=== PATIENT | female | born 1945 | race Caucasian/White ===

== ENCOUNTER 2016-12-17 10:51 | Outpatient (CLI) | payer MEDICARE ==
--- NOTE | 2016-12-17 14:12 | Mammography Report ---
DIGITAL DIAGNOSTIC BILATERAL MAMMOGRAM: 12/17/2016 CLINICAL INDICATION: Left breast cancer, status post lumpectomy, bilateral reduction, chemoradiation. TECHNIQUE: Bilateral CC and MLO views, bilateral laterally exaggerated craniocaudal views, left true lateral and spot magnification views. COMPARISON: 05/08/2016, 07/23/2015, 08/14/2014, 06/22/2014, 05/08/2014, 04/25/2014, 03/21/2013, 11/26, 10/08/2010, 08/24/2009. FINDINGS: The breasts demonstrate scattered fibroglandular densities bilaterally. Postoperative and posttreatment changes in the left breast and postreduction changes in the right breast are stable. A few punctate, typically benign calcifications are present. No suspicious masses, clustered microcalci fications, or regions of architectural distortion are identified. IMPRESSION: BENIGN FINDINGS. RECOMMENDATION: ROUTINE ANNUAL MAMMOGRAPHY UNLESS OTHERWISE CLINICALLY INDICATED. BIRADS CATEGORY 2-BENIGN FINDINGS. STANDARD QUALIFYING STATEMENTS 1. This examination was reviewed with the aid of Computer-Aided Detection (CAD). 2. A negative or benign imaging report should not delay biopsy if clinically suspicious findings are present. Consider surgical consultation if warranted. More than 5% of cancers are not identified by i maging. 3. Dense breasts may obscure an underlying neoplasm. JOB #: [id number] EXT JOB #:[id number]
== END 2016-12-17 10:52 | disposition home or self-care (01) ==
LOC: DI 10:51
PROVIDERS: ATTEND Internal Medicine Hematology & Oncology
DX: C50.912 Malignant neoplasm of unspecified site of left female breast (principal)
CPT/HCPCS: 77066

== ENCOUNTER 2016-12-17 11:03 | Outpatient (CLI) | payer MEDICARE ==
--- NOTE | 2016-12-17 14:03 | XRAY Report ---
THREE VIEW BILATERAL HANDS: 12/17/2016 CLINICAL INDICATION: Pain. FINDINGS: AP, lateral, and oblique views of the bilateral hands demonstrate mild osteoarthritic renteria ges of the interphalangeal joints and 1st carpometacarpal joints. There is no evidence of acute fract ure or dislocation. No radiopaque foreign body is seen in the soft tissues. IMPRESSION: MILD OSTEOARTHRITIS. JOB #: [id number] EXT JOB #:[id number]
== END 2016-12-17 11:04 | disposition home or self-care (01) ==
LOC: DI 11:03
PROVIDERS: ATTEND Family Medicine
DX: C50.912 Malignant neoplasm of unspecified site of left female breast (principal); M19.042 Primary osteoarthritis, left hand; M19.041 Primary osteoarthritis, right hand
CPT/HCPCS: 73130; G0204; 77066

== ENCOUNTER 2018-01-20 13:54 | Outpatient (CLI) | payer MEDICARE ==
--- NOTE | 2018-01-20 16:42 | Mammography Report ---
Procedure Date: 01/20/2018 Accession Number: [id number] / [id number] Procedure: YUKO - Diagnostic Dig Bilat CPT Code: FULL RESULT: EXAM: Diagnostic Dig Bilat DATE: 01/20/2018 2:27 PM CLINICAL HISTORY: 72-year-old with personal history of left breast cancer status post lumpectomy, bilateral reduction, chemoradiation TECHNIQUE: Bilateral CC and MLO views, left true lateral and spot compression views COMPARISON: 12/17/2016, 05/08/2016, 07/23/2015, 08/14/2014, 06/12/2014, 05/08/2014, 04/25/2014, 03/21/2013, 11/27/2011, 10/08/2010, 08/24/2009 FINDINGS: The breasts again demonstrate fatty replacement bilaterally. In the left upper outer central breast, there is a new nodule, measuring 6 mm. Punctate, typically benign calcifications are present. Unfortunately, due to emergent procedures, ultrasound could not be performed the same day. The patient will be contacted to schedule the ultrasound. IMPRESSION: Incomplete examination RECOMMENDATION: Left breast ultrasound, to be scheduled BIRADS CATEGORY 0: Incomplete STANDARD QUALIFYING STATEMENTS: 1. This examination was reviewed with the aid of Computer-Aided Detection (CAD). 2. A negative or benign imaging report should not delay biopsy if clinically suspicious findings are present. Consider surgical consultation if warrented. More than 5% of cancers are not identified by imaging. 3. Dense breasts may obscure an underlying neoplasm.
== END 2018-01-20 13:55 | disposition home or self-care (01) ==
LOC: DI 13:54
PROVIDERS: ATTEND Family Medicine
DX: N63.21 Unspecified lump in the left breast, upper outer quadrant (principal); Z85.3 Personal history of malignant neoplasm of breast
CPT/HCPCS: 76642; 77066

== ENCOUNTER 2018-01-21 10:41 | Outpatient (CLI) | payer MEDICARE ==
--- NOTE | 2018-01-21 12:56 | Ultrasound Report ---
Procedure Date: 01/21/2018 Accession Number: [id number] / [id number] Procedure: US - Breast Unilateral Limited CPT Code: FULL RESULT: EXAM: Breast Unilateral Limited DATE: 01/21/2018 11:43 AM CLINICAL HISTORY: LEFT BREAST NODULE TECHNIQUE: Real time scanning, with insurance representative static images obtained. COMPARISON: Mammogram 01/20/2018 FINDINGS: In the left upper outer breast, 1:00 position, approximately 3 cm from the nipple, there is a hypoechoic lobulated nodule, with some posterior acoustic shadowing. It measures 5 x 5 x 4 mm. The appearance is suspicious. Biopsy is recommended. Nodule appears amenable to ultrasound-guided core needle biopsy. IMPRESSION: Suspicious abnormality, with a solid lobulated nodule correlating with mammographic abnormality. Recommendation: Biopsy. The nodule appears amenable to ultrasound-guided core needle biopsy. BI-RADS Category 4 suspicious abnormality Results and recommendations discussed with the patient at the time of the examination, and called to Dr. Carlson on 01/21/2018. Biopsy is scheduled for 01/26/2018 at 11:45 AM.
== END 2018-01-21 10:42 | disposition home or self-care (01) ==
LOC: DI 10:41
PROVIDERS: ATTEND Family Medicine
DX: N63.21 Unspecified lump in the left breast, upper outer quadrant (principal)
CPT/HCPCS: 76642

== ENCOUNTER 2018-01-26 11:41 | Outpatient (CLI) | payer MEDICARE ==
--- NOTE | 2018-01-26 13:42 | Mammography Report ---
Procedure Date: 01/26/2018 Accession Number: [id number] / [id number] Procedure: YUKO - Diagnostic Dig LT CPT Code: FULL RESULT: EXAM: Diagnostic Dig LT DATE: 01/26/2018 1:17 PM CLINICAL HISTORY: Status post ultrasound-guided left breast core biopsy. Patient with a personal history of left breast cancer status post chemoradiation and reduction. TECHNIQUE: Unilateral left CC and true lateral views. COMPARISON: 01/20/2018, 12/17/2016, 05/08/2016 and 07/23/2015 FINDINGS: There are scattered fibroglandular densities. In the area of previously seen left breast upper outer quadrant nodule a new biopsy clip is seen. Subcutaneous air is consistent with the recent biopsy. IMPRESSION: Appropriate clip placement status post ultrasound-guided left breast core biopsy. RECOMMENDATION: Final recommendation pending pathology review. BIRADS CATEGORY 0: Awaiting pathology review. STANDARD QUALIFYING STATEMENTS: 1. This examination was reviewed with the aid of Computer-Aided Detection (CAD). 2. A negative or benign imaging report should not delay biopsy if clinically suspicious findings are present. Consider surgical consultation if warrented. More than 5% of cancers are not identified by imaging. 3. Dense breasts may obscure an underlying neoplasm.
--- NOTE | 2018-01-26 14:02 | Ultrasound Report ---
Procedure Date: 01/26/2018 Accession Number: [id number] / [id number] Procedure: US - Biopsy Breast Core CPT Code: FULL RESULT: EXAM: Biopsy Breast Core DATE: 01/26/2018 12:58 PM CLINICAL HISTORY: ABN MAMMOGRAM - LT BR NODULE patient with personal history of breast cancer. COMPARISON: Left breast mammogram 01/20/2018 and ultrasound 01/21/2018 TECHNIQUE: Initial real-time scanning by the social work therapist with saved static images reviewed confirms the persistence of a hypoechoic left breast 5 x 5 x 4 mm nodule approximately 3 cm from the nipple. Informed consent is obtained from the patient. Using ultrasound guidance the suspicious left breast nodule is marked. Using sterile technique 1% lidocaine is used for local anesthesia. Then 5 core samples using an achieve needle are obtained with ultrasound confirmation of needle position with reference to the lesion. A biopsy clip was then deployed. Postprocedure left breast mammogram shows appropriate clip placement with respect to the lesion. IMPRESSION: Successful ultrasound-guided left breast core biopsy. Final recommendation pending pathology review.
[2018-01-26 14:38] VITALS: BP 163/76
[2018-01-26] MEDS ORDERED: BUFFERED LIDOCAINE 10 ML SYRINGE IU ONE (15:53)
== END 2018-01-26 11:42 | disposition home or self-care (01) ==
LOC: DI 11:41
PROVIDERS: ATTEND Family Medicine
DX: C50.412 Malignant neoplasm of upper-outer quadrant of left female breast (principal); Z17.0 Estrogen receptor positive status [ER+]
CPT/HCPCS: 19083

== ENCOUNTER 2018-04-12 00:12 | Outpatient (CLI) | payer MEDICARE | END 2018-04-12 00:13 | disposition short-term general hospital (02) | LOC: EMS 00:12 | PROVIDERS: ATTEND Surgery | DX: R58 Hemorrhage, not elsewhere classified (principal); R42 Dizziness and giddiness ==

== ENCOUNTER 2020-02-07 11:05 | Outpatient (CLI) | payer MEDICARE ==
[2020-02-07 19:20] LABS: BASOPHILS # (AUTO) 0.1 10^3/uL (0.0-0.1); BASOPHILS % (AUTO) 0.9 %; EOSINOPHILS # (AUTO) 0.1 10^3/uL (0.0-0.7); HGB - HEMOGLOBIN 11.9 g/dL (12.0-16.0); LYMPHOCYTES # (AUTO) 2.3 10^3/uL (1.5-3.5); LYMPHOCYTES % (AUTO) 34.2 %; MEAN CORPUSCULAR HEMOGLOBIN 25.3 pg (27.0-31.0); MEAN CORPUSCULAR HGB CONC 30.2 g/dL (32.0-36.0); MEAN CORPUSCULAR VOLUME 83.7 fL (81.0-99.0); MEAN PLATELET VOLUME 10.7 fL (7.9-10.8); MONOCYTES # (AUTO) 0.6 10^3/uL (0.0-1.0); MONOCYTES % (AUTO) 9.5 %; NEUTROPHILS # (AUTO) 3.5 10^3/uL (1.5-6.6); NEUTROPHILS % (AUTO) 53.1 %; PLT - PLATELET COUNT 222 10^3/uL (130-450); RED BLOOD COUNT 4.71 10^6/uL (4.20-5.40); RED CELL DISTRIBUTION WIDTH 17.5 % (12.0-15.0); WHITE BLOOD COUNT 6.6 x10^3/uL (4.8-10.8)
[2020-02-07 19:51] LABS: ALKALINE PHOSPHATASE 45 IU/L (42-121); ALT ALANINE AMINOTRANSFERASE 25 IU/L (10-60); AST ASPARTATE AMINOTRANSFERASE 26 IU/L (10-42); BILIRUBIN,TOTAL 0.4 mg/dL (0.2-1.0); BUN - BLOOD UREA NITROGEN 13 mg/dL (6-20); CALCIUM 8.9 mg/dL (8.5-10.3); CARBON DIOXIDE - CO2 28 mmol/L (21-32); CHLORIDE 105 mmol/L (101-111); CREATININE 0.8 mg/dL (0.4-1.0); GLUCOSE 102 mg/dL (70-100); SODIUM 140 mmol/L (135-145); TOTAL PROTEIN 6.7 g/dL (6.7-8.2)
[2020-02-07 19:52] LABS: ALBUMIN 3.6 g/dL (3.2-5.5); ALBUMIN/GLOBULIN RATIO 1.2 (1.0-2.2); CHOL/HDL RATIO 2.4 (<4.4); CHOLESTEROL 137 mg/dL; HDL CHOLESTEROL 57 mg/dL; LDL CHOLESTEROL,CALCULATED 62 mg/dL; LDL/HDL RATIO 1.1 (<4.4); VLDL CHOLESTEROL 18 mg/dL
[2020-02-07 20:03] LABS: HB2 TOTAL 12.7 g/dL; HEMOGLOBIN A1C 0.5 g/dL; HEMOGLOBIN A1C % 5.8 % (4.6-6.2)
== END 2020-02-07 23:59 | disposition home or self-care (01) ==
LOC: LAB.WCP 11:05
PROVIDERS: ATTEND Physician Assistant
DX: R73.9 Hyperglycemia, unspecified (principal); Z79.899 Other long term (current) drug therapy; E53.8 Deficiency of other specified B group vitamins
CPT/HCPCS: 36415; 80053; 80061; 82607; 83036; 83721; 85025

== ENCOUNTER 2020-02-08 10:41 | Outpatient (CLI) | payer MEDICARE ==
--- NOTE | 2020-02-12 13:23 | Mammography Report ---
UNILATERAL RIGHT DIGITAL SCREENING MAMMOGRAM 3D/2D: 02/08/2020 CLINICAL: Routine screening. Comparison is made to exams dated: 01/24/2019 mammogram - [facility], 01/26/2018 mammogram, 2017 mammogram, and 12/17/2016 mammogram - [facility]. The tissue of right breast i s predominantly fatty. No significant masses, calcifications, or other findings are seen in the breast. There has been no significant interval change. IMPRESSION: NEGATIVE There is no mammographic evidence of malignancy. A 1 year screening mammogram is recommended. This exam was interpreted at Station ID: [id number]. NOTE: For mammograms, a report in lay terms will be sent to the patient. Approximately 15% of breast malignancies will not be visualized mammographically. In the management of a palpable breast mass, a negative mammogram must not discourage biopsy of a clinically suspicious lesion. Electronically Signed By: Steve Nava M.D. slc/penrad:02/08/2020 18:39:00 ACR BI-RADS Category 1: Negative 3341F PARENCHYMAL PATTERN: (F) - The breast(s) demonstrate(s) diffuse fatty replacement. BI-RADS CATEGORY: (1) - 1 RECOMMENDATION: (ANNUAL) - Recommend routine annual screening mammography. [id number] 1 year screening LATERALITY: (B)
== END 2020-02-08 10:42 | disposition home or self-care (01) ==
LOC: DI 10:41
PROVIDERS: ATTEND Internal Medicine Hematology & Oncology
DX: Z12.31 Encounter for screening mammogram for malignant neoplasm of breast (principal)
CPT/HCPCS: 77063

== ENCOUNTER 2020-06-05 08:00 | Outpatient (CLI) | payer MEDICARE | END 2020-06-05 23:59 | disposition home or self-care (01) | LOC: LAB.R 08:00 | PROVIDERS: ATTEND Nurse Practitioner Family | DX: R30.0 Dysuria (principal) | CPT/HCPCS: 87086; 87181 ==

== ENCOUNTER 2020-07-15 08:00 | Outpatient (CLI) | payer MEDICARE ==
[2020-07-15 19:33] LABS: BILIRUBIN,URINE NEGATIVE (NEGATIVE); GLUCOSE, URINE (UA) NEGATIVE (NEGATIVE); KETONES,URINE (UA) NEGATIVE (NEGATIVE); LEUKOCYTE ESTERASE, URINE SMALL (NEGATIVE); NITRITE,URINE NEGATIVE (NEGATIVE); OCCULT BLOOD,URINE MODERATE (NEGATIVE); PROTEIN,URINE 30 mg/dL (NEGATIVE); UROBILINOGEN,URINE 0.2 (NORMAL) E.U./dL (NORMAL)
[2020-07-15 19:35] LABS: CLARITY,URINE SL. CLOUDY (CLEAR)
[2020-07-15 19:39] LABS: BACTERIA,URINE Many /HPF (None Seen); RBC,URINE TNTC /HPF (0-5); SQUAMOUS EPITHELIAL CELL,UR FEW Squamous (<= Few)
== END 2020-07-15 23:59 | disposition home or self-care (01) ==
LOC: LAB.R 08:00
PROVIDERS: ATTEND Nurse Practitioner
DX: N39.0 Urinary tract infection, site not specified (principal)
CPT/HCPCS: 81001; 81003; 87077; 87086; 87181

== ENCOUNTER 2020-08-05 11:05 | Outpatient (CLI) | payer MEDICARE | END 2020-08-05 23:59 | disposition home or self-care (01) | LOC: LAB.R 11:05 | PROVIDERS: ATTEND Family Medicine | DX: N39.0 Urinary tract infection, site not specified (principal) | CPT/HCPCS: 87086; 87181 ==

== ENCOUNTER 2020-09-10 10:39 | Outpatient (CLI) | payer MEDICARE ==
--- NOTE | 2020-09-10 17:00 | DEXA Report ---
PROCEDURE: Dexa Spine and/or Hip INDICATIONS: POSTMENOPAUSAL TECHNIQUE: Dual energy x-ray absorptiometry (DXA) was performed on a [employer]ros System. Regions measur ed are the AP Spine, femoral neck, and if needed forearm. COMPARISON: 05/02/2018, 05/08/2016. FINDINGS: Lumbar Spine: Bone Mineral Density 0.999 g/cm/cm,T score -1.5, osteopenia Left Hip: Bone Mineral Density 0.837 g/cm/cm,T score -1.4, osteopenia Left Femoral Neck: Bone Mineral Density 0.873 g/cm/cm, T score -1.2, osteopenia (T score greater or equal to -1.0: NORMAL) (T score from -1.1 to -2.4: OSTEOPENIA) (T score less than or equal to -2.5 to: OSTEOPOROSIS) Impression: Osteopenia. Bone mineral density has decreased by 7.1% interval since prior exam obtained 05/02/2018. Patients with diagnosis of osteoporosis or osteopenia should have regular bone mineral density assess ment. For those eligible for Medicare, routine testing is allowed once every 2 years. Testing frequ ency can be increased for patients who have rapidly progressing disease or for those who are receivin g medical therapy to restore bone mass. Reviewed by: Ileana Serrato MD, PhD on 09/10/2020 4:58 PM PST Approved by: Ileana Serrato MD, PhD on 09/10/2020 4:58 PM PST Station ID: [id number]
== END 2020-09-10 10:40 | disposition home or self-care (01) ==
LOC: DI 10:39
PROVIDERS: ATTEND Internal Medicine Hematology & Oncology
DX: M85.89 Other specified disorders of bone density and structure, multiple sites (principal)

== ENCOUNTER 2020-09-20 10:46 | Outpatient (CLI) | payer MEDICARE ==
[2020-09-20] MEDS ORDERED: IOVERSOL 320 100 ML VIAL IVP ONE ×2 (11:26→12:09)
[2020-09-20 11:52] LABS: CREATININE 0.7 mg/dL (0.4-1.0)
--- NOTE | 2020-09-20 13:40 | CT Report ---
PROCEDURE: IVP INDICATIONS: MICROSCOPIC HEMATURIA CONTRAST: IV CONTRAST: Optiray 320 ml: 140 PO CONTRAST: *NO PO CONTRAST TECHNIQUE: After the administration of intravenous contrast, 5 mm thick sections acquired from the diaphragms to the symphysis. 5 mm thick coronal and sagittal reformats were acquired. For radiation dose reducti on, the following was used: automated exposure control, adjustment of mA and/or kV according to fidel ent size. COMPARISON: None. FINDINGS: Image quality: Excellent. Lung bases: Lung bases are clear. Heart size is normal. Urinary system: Both kidneys are normal in size and enhancement. Contrast-filled renal calyces are normal in morphology. Contrast filled portions of both ureters are normal in caliber. Bladder wall thickness is normal. There is an 8 cm maximal dimension cyst projecting inferiorly from the lower co rtex of the right kidney and this cyst appears to contain several punctate dependent layering calcifi cations within. Solid organs: Liver and spleen are normal in size and enhancement. Gallbladder contains at least 3 peripherally calcified small to moderate-sized gallstones, none of which appear impacted within the g allbladder neck area and there is no sign of acute cholecystitis or biliary obstruction Biliary syst em is non dilated. Pancreas enhances normally. No adrenal nodules. Peritoneum and bowel: Bowel loops demonstrate normal wall thickness and caliber. No free fluid or a ir. Nodes and vessels: No retroperitoneal or mesenteric adenopathy by size criteria. Aorta and inferior vena cava are normal in size. Abdominal wall: No ventral hernias. Pelvis: No pathologic free pelvic fluid. No inguinal hernias or adenopathy. Bones: No suspicious bony lesions. No vertebral body compression fractures. IMPRESSION: The urinary tract stone is not seen. There is no visualized evidence of renal cortical o r urothelial neoplasm. A dominant right lower 8 cm exophytic renal cortical Reviewed by: Sheldon Arriaza MD on 09/20/2020 1:39 PM PST Approved by: Sheldon Arriaza MD on 09/20/2020 1:39 PM PST Station ID: [id number]
== END 2020-09-20 10:47 | disposition home or self-care (01) ==
LOC: LAB 10:46
PROVIDERS: ATTEND Urology
DX: R31.29 Other microscopic hematuria (principal); N28.1 Cyst of kidney, acquired
CPT/HCPCS: 36415; 74178; 82565; 84520; Q9967

== ENCOUNTER 2020-09-24 08:00 | Outpatient (CLI) | payer MEDICARE | END 2020-09-24 23:59 | disposition home or self-care (01) | LOC: LAB.R 08:00 | PROVIDERS: ATTEND Physician Assistant Medical | DX: N39.0 Urinary tract infection, site not specified (principal) | CPT/HCPCS: 87077; 87086; 87181 ==

== ENCOUNTER 2020-11-15 08:00 | Outpatient (CLI) | payer MEDICARE ==
[2020-11-15 18:54] LABS: CALCIUM 8.9 mg/dL (8.5-10.3); CREATININE 0.8 mg/dL (0.4-1.0); POTASSIUM 3.5 mmol/L (3.5-5.0)
[2020-11-15 19:09] LABS: CREATININE,URINE 161.5 mg/dL; MICROALBUM/CREATININE RATIO,UR 68.1 ug/mg (<30.0)
== END 2020-11-15 23:59 | disposition home or self-care (01) ==
LOC: LAB.WCP 08:00
PROVIDERS: ATTEND Internal Medicine
DX: I10 Essential (primary) hypertension (principal)
CPT/HCPCS: 36415; 80048; 82043; 82570

== ENCOUNTER 2021-01-11 08:00 | Outpatient (CLI) | payer MEDICARE | END 2021-01-11 23:59 | LOC: LAB.S 08:00 | PROVIDERS: ATTEND Physician Assistant Medical | DX: N39.0 Urinary tract infection, site not specified (principal); R30.0 Dysuria | CPT/HCPCS: 87077; 87086; 87181 ==

== ENCOUNTER 2021-02-28 08:00 | Outpatient (CLI) | payer MEDICARE ==
[2021-02-28 12:38] LABS: BASOPHILS % (AUTO) 0.6 %; EOSINOPHILS # (AUTO) 0.1 10^3/uL (0.0-0.7); EOSINOPHILS % (AUTO) 1.3 %; HCT - HEMATOCRIT 41.7 % (37.0-47.0); HGB - HEMOGLOBIN 13.3 g/dL (12.0-16.0); MEAN CORPUSCULAR HEMOGLOBIN 27.7 pg (27.0-31.0); MEAN CORPUSCULAR HGB CONC 31.9 g/dL (32.0-36.0); MEAN CORPUSCULAR VOLUME 86.7 fL (81.0-99.0); MEAN PLATELET VOLUME 10.5 fL (7.9-10.8); MONOCYTES # (AUTO) 0.6 10^3/uL (0.0-1.0); MONOCYTES % (AUTO) 8.8 %; NEUTROPHILS # (AUTO) 3.7 10^3/uL (1.5-6.6); PLT - PLATELET COUNT 234 10^3/uL (130-450); RED BLOOD COUNT 4.81 10^6/uL (4.20-5.40); RED CELL DISTRIBUTION WIDTH 15.4 % (12.0-15.0); WHITE BLOOD COUNT 6.4 x10^3/uL (4.8-10.8)
[2021-02-28 12:45] LABS: ALBUMIN 3.9 g/dL (3.2-5.5); ALBUMIN/GLOBULIN RATIO 1.3 (1.0-2.2); ALKALINE PHOSPHATASE 40 IU/L (42-121); ALT ALANINE AMINOTRANSFERASE 24 IU/L (10-60); AST ASPARTATE AMINOTRANSFERASE 24 IU/L (10-42); BILIRUBIN,TOTAL 0.6 mg/dL (0.2-1.0); BUN - BLOOD UREA NITROGEN 16 mg/dL (6-20); CALCIUM 8.9 mg/dL (8.5-10.3); CARBON DIOXIDE - CO2 26 mmol/L (21-32); CHLORIDE 101 mmol/L (101-111); CHOL/HDL RATIO 2.5 (<4.4); CHOLESTEROL 147 mg/dL; GFR - MDRD 54 (>89); GLUCOSE 116 mg/dL (70-100); HDL CHOLESTEROL 58 mg/dL; LDL CHOLESTEROL,CALCULATED 75 mg/dL; LDL/HDL RATIO 1.3 (<4.4); POTASSIUM 3.6 mmol/L (3.5-5.0); SODIUM 139 mmol/L (135-145); TOTAL PROTEIN 6.9 g/dL (6.7-8.2); TRIGLYCERIDES 71 mg/dL; VLDL CHOLESTEROL 14 mg/dL
== END 2021-02-28 23:59 | disposition home or self-care (01) ==
LOC: LAB.WCP 08:00
PROVIDERS: ATTEND Physician Assistant Medical
DX: I10 Essential (primary) hypertension (principal); R73.9 Hyperglycemia, unspecified; K21.9 Gastro-esophageal reflux disease without esophagitis; N39.0 Urinary tract infection, site not specified; E53.8 Deficiency of other specified B group vitamins; R30.0 Dysuria
CPT/HCPCS: 36415; 80053; 80061; 82607; 83721; 85025; 87086

== ENCOUNTER 2021-11-24 08:00 | Outpatient (CLI) | payer MEDICARE | END 2021-11-24 08:01 | disposition home or self-care (01) | LOC: LAB.N 08:00 | PROVIDERS: ATTEND Family Medicine | DX: R10.9 Unspecified abdominal pain (principal) | CPT/HCPCS: 87086; 87181 ==

== ENCOUNTER 2021-12-05 09:28 | Outpatient (CLI) | payer MEDICARE ==
[2021-12-05 13:07] LABS: BASOPHILS % (AUTO) 0.5 %; EOSINOPHILS # (AUTO) 0.2 10^3/uL (0.0-0.7); HCT - HEMATOCRIT 39.3 % (37.0-47.0); HGB - HEMOGLOBIN 12.4 g/dL (12.0-16.0); LYMPHOCYTES # (AUTO) 2.3 10^3/uL (1.5-3.5); LYMPHOCYTES % (AUTO) 30.4 %; MEAN CORPUSCULAR HEMOGLOBIN 27.1 pg (27.0-31.0); MEAN CORPUSCULAR HGB CONC 31.6 g/dL (32.0-36.0); MEAN CORPUSCULAR VOLUME 85.8 fL (81.0-99.0); MEAN PLATELET VOLUME 10.9 fL (7.9-10.8); MONOCYTES # (AUTO) 0.8 10^3/uL (0.0-1.0); MONOCYTES % (AUTO) 9.9 %; NEUTROPHILS # (AUTO) 4.3 10^3/uL (1.5-6.6); NEUTROPHILS % (AUTO) 56.9 %; PLT - PLATELET COUNT 226 10^3/uL (130-450); RED BLOOD COUNT 4.58 10^6/uL (4.20-5.40); RED CELL DISTRIBUTION WIDTH 13.9 % (12.0-15.0); WHITE BLOOD COUNT 7.6 x10^3/uL (4.8-10.8)
[2021-12-05 13:11] LABS: ALBUMIN 3.7 g/dL (3.2-5.5); ALBUMIN/GLOBULIN RATIO 1.4 (1.0-2.2); ALKALINE PHOSPHATASE 39 IU/L (42-121); ALT ALANINE AMINOTRANSFERASE 22 IU/L (10-60); AST ASPARTATE AMINOTRANSFERASE 21 IU/L (10-42); BILIRUBIN,TOTAL 0.7 mg/dL (0.2-1.0); BUN - BLOOD UREA NITROGEN 19 mg/dL (6-20); CALCIUM 9.3 mg/dL (8.5-10.3); CARBON DIOXIDE - CO2 31 mmol/L (21-32); CHLORIDE 102 mmol/L (101-111); CHOL/HDL RATIO 2.4 (<4.4); CHOLESTEROL 140 mg/dL; CREATININE 0.8 mg/dL (0.4-1.0); GFR - MDRD 70 (>89); GLUCOSE 103 mg/dL (70-100); HDL CHOLESTEROL 59 mg/dL; LDL CHOLESTEROL,CALCULATED 62 mg/dL; LDL/HDL RATIO 1.1 (<4.4); POTASSIUM 4.4 mmol/L (3.5-5.0); SODIUM 141 mmol/L (135-145); TOTAL PROTEIN 6.4 g/dL (6.7-8.2); TRIGLYCERIDES 93 mg/dL; VLDL CHOLESTEROL 19 mg/dL
[2021-12-05 13:27] LABS: ESTIMATED AVERAGE GLUCOSE 111 mg/dL (70-100); HEMOGLOBIN A1c% 5.5 % (4.27-6.07)
== END 2021-12-05 09:29 | disposition home or self-care (01) ==
LOC: LAB.N 09:28
PROVIDERS: ATTEND Physician Assistant Medical
DX: I10 Essential (primary) hypertension (principal); E53.8 Deficiency of other specified B group vitamins; R73.9 Hyperglycemia, unspecified
CPT/HCPCS: 36415; 80053; 80061; 82607; 83036; 83721; 85025

== ENCOUNTER 2022-02-13 08:00 | Outpatient (CLI) | payer MEDICARE | END 2022-02-13 23:59 | disposition home or self-care (01) | LOC: LAB.N 08:00 | PROVIDERS: ATTEND Physician Assistant | DX: R30.0 Dysuria (principal) | CPT/HCPCS: 87077; 87086; 87181 ==

== ENCOUNTER 2022-02-24 08:00 | Outpatient (CLI) | payer MEDICARE | END 2022-02-24 23:59 | disposition home or self-care (01) | LOC: LAB.N 08:00 | PROVIDERS: ATTEND Physician Assistant Medical | DX: N30.00 Acute cystitis without hematuria (principal) | CPT/HCPCS: 87086 ==

== ENCOUNTER 2022-04-27 08:00 | Outpatient (CLI) | payer MEDICARE | END 2022-04-27 23:59 | disposition home or self-care (01) | LOC: LAB.N 08:00 | PROVIDERS: ATTEND Physician Assistant Medical | DX: M17.12 Unilateral primary osteoarthritis, left knee (principal); N30.00 Acute cystitis without hematuria | CPT/HCPCS: 87086 ==

== ENCOUNTER 2022-08-07 08:00 | Outpatient (CLI) | payer MEDICARE | END 2022-08-07 23:59 | disposition home or self-care (01) | LOC: LAB 08:00 | PROVIDERS: ATTEND Family Medicine | DX: N39.0 Urinary tract infection, site not specified (principal) | CPT/HCPCS: 87086; 87181 ==

== ENCOUNTER 2022-08-18 10:47 | Outpatient (CLI) | payer MEDICARE ==
--- NOTE | 2022-08-18 15:13 | XRAY Report ---
PROCEDURE: Chest 2 View X-Ray INDICATIONS: Back pain, thoracic region TECHNIQUE: 2 views of the chest were acquired. COMPARISON: None FINDINGS: Surgical changes and devices: None. Lungs and pleura: No pleural effusions or pneumothorax. Lungs are clear. Mediastinum: Mediastinal contours are normal. Heart size is normal. Bones and chest wall: No suspicious bony abnormalities. Soft tissues appear unremarkable. Thoracic vertebral body heights maintained. Mild thoracic spine degenerative changes. No gross rib abnormalit y. IMPRESSION: No acute finding or other pain generating lesion identified. Reviewed by: Mac Castillo MD on 08/18/2022 3:11 PM PST Approved by: Mac Castillo MD on 08/18/2022 3:11 PM PST Station ID: [id number]
--- NOTE | 2022-08-18 15:14 | XRAY Report ---
PROCEDURE: Ribs 3 View BILAT INDICATIONS: BACK PAIN TECHNIQUE: Three views of the left ribs were acquired. COMPARISON: None. FINDINGS: Bones and chest wall: No fractures or dislocations. No suspicious bony lesions. Overlying soft tis sues appear unremarkable. Lungs and pleura: The visualized lung appears clear. No pleural effusions or pneumothorax are visib le. IMPRESSION: Normal study. No rib fracture or rib lesion identified. Reviewed by: Mac Castillo MD on 08/18/2022 3:13 PM PST Approved by: Mac Castillo MD on 08/18/2022 3:13 PM [facility] Station ID: [id number]
== END 2022-08-18 10:48 | disposition home or self-care (01) ==
LOC: DI 10:47
PROVIDERS: ATTEND Family Medicine
DX: M54.6 Pain in thoracic spine (principal)

== ENCOUNTER 2022-08-20 08:00 | Outpatient (CLI) | payer MEDICARE | END 2022-08-20 23:59 | disposition home or self-care (01) | LOC: LAB.N 08:00 | PROVIDERS: ATTEND Nurse Practitioner | DX: M54.50 Low back pain, unspecified (principal) | CPT/HCPCS: 87086 ==

== ENCOUNTER 2022-09-18 14:01 | Outpatient (CLI) | payer MEDICARE ==
--- NOTE | 2022-09-18 16:18 | XRAY Report ---
PROCEDURE: Knee 3 View LT INDICATIONS: LEFT KNEE PAIN TECHNIQUE: 3 views of the left knee(s) were acquired. COMPARISON: None. FINDINGS: Bones: No fractures or dislocations. No suspicious bony lesions. Mild tricompartmental periarticul ar osteophyte formation. Soft tissues: No joint effusion. No suspicious soft tissue calcifications. IMPRESSION: Osteoarthritis. No acute fracture. No osseous lesion. If symptoms and/or clinical suspic ion for pathology continue, further assessment with repeat plain films, or advanced imaging (e.g., CT , MRI, or bone scan) is recommended for further assessment. Reviewed by: Stephanie Yu MD on 09/18/2022 4:17 PM PST Approved by: Stephanie Yu MD on 09/18/2022 4:17 PM PST Station ID: [id number]
== END 2022-09-18 14:02 | disposition home or self-care (01) ==
LOC: DI 14:01
PROVIDERS: ATTEND Physician Assistant Medical
DX: M17.12 Unilateral primary osteoarthritis, left knee (principal)

== ENCOUNTER 2022-10-07 09:45 | Outpatient (CLI) | payer MEDICARE ==
[2022-10-07 12:16] LABS: BASOPHILS # (AUTO) 0.1 10^3/uL (0.0-0.1); BASOPHILS % (AUTO) 0.7 %; EOSINOPHILS # (AUTO) 0.1 10^3/uL (0.0-0.7); EOSINOPHILS % (AUTO) 1.6 %; HCT - HEMATOCRIT 37.1 % (37.0-47.0); HGB - HEMOGLOBIN 11.5 g/dL (12.0-16.0); LYMPHOCYTES # (AUTO) 2.3 10^3/uL (1.5-3.5); LYMPHOCYTES % (AUTO) 28.6 %; MEAN CORPUSCULAR HEMOGLOBIN 26.9 pg (27.0-31.0); MEAN CORPUSCULAR VOLUME 86.7 fL (81.0-99.0); MEAN PLATELET VOLUME 10.7 fL (7.9-10.8); MONOCYTES # (AUTO) 0.7 10^3/uL (0.0-1.0); MONOCYTES % (AUTO) 8.6 %; NEUTROPHILS # (AUTO) 4.8 10^3/uL (1.5-6.6); NEUTROPHILS % (AUTO) 60.3 %; PLT - PLATELET COUNT 222 10^3/uL (130-450); RED BLOOD COUNT 4.28 10^6/uL (4.20-5.40); RED CELL DISTRIBUTION WIDTH 15.9 % (12.0-15.0)
[2022-10-07 12:36] LABS: ALBUMIN 3.6 g/dL (3.2-5.5); ALBUMIN/GLOBULIN RATIO 1.3 (1.0-2.2); ALKALINE PHOSPHATASE 42 IU/L (42-121); ALT ALANINE AMINOTRANSFERASE 24 IU/L (10-60); AST ASPARTATE AMINOTRANSFERASE 22 IU/L (10-42); BILIRUBIN,TOTAL 0.6 mg/dL (0.2-1.0); BUN - BLOOD UREA NITROGEN 22 mg/dL (6-20); CALCIUM 9.2 mg/dL (8.5-10.3); CARBON DIOXIDE - CO2 29 mmol/L (21-32); CHLORIDE 104 mmol/L (101-111); CHOL/HDL RATIO 2.5 (<4.4); CHOLESTEROL 135 mg/dL; CREATININE 0.8 mg/dL (0.4-1.0); GFR - MDRD 70 (>89); GLUCOSE 105 mg/dL (70-100); HDL CHOLESTEROL 54 mg/dL; LDL CHOLESTEROL,CALCULATED 63 mg/dL; LDL/HDL RATIO 1.2 (<4.4); POTASSIUM 4.4 mmol/L (3.5-5.0); SODIUM 141 mmol/L (135-145); TOTAL PROTEIN 6.4 g/dL (6.7-8.2); TRIGLYCERIDES 88 mg/dL; VLDL CHOLESTEROL 18 mg/dL
== END 2022-10-07 09:46 | disposition home or self-care (01) ==
LOC: LAB.N 09:45
PROVIDERS: ATTEND Physician Assistant Medical
DX: I10 Essential (primary) hypertension (principal); R73.9 Hyperglycemia, unspecified; E53.8 Deficiency of other specified B group vitamins
CPT/HCPCS: 36415; 80053; 80061; 82607; 83721; 85025

== ENCOUNTER 2022-11-09 13:45 | Outpatient (CLI) | payer MEDICARE | END 2022-11-09 14:00 | disposition home or self-care (01) | LOC: LAB.N 13:45 | PROVIDERS: ATTEND Nurse Practitioner | DX: R30.0 Dysuria (principal) | CPT/HCPCS: 87077; 87086 ==

== ENCOUNTER 2022-12-23 14:30 | Outpatient (CLI) | payer MEDICARE | END 2022-12-23 14:45 | disposition home or self-care (01) | LOC: LAB.N 14:30 | PROVIDERS: ATTEND Physician Assistant | DX: N39.0 Urinary tract infection, site not specified (principal) | CPT/HCPCS: 87086 ==

== ENCOUNTER 2023-01-11 17:00 | Outpatient (CLI) | payer MEDICARE | END 2023-01-11 17:15 | disposition home or self-care (01) | LOC: LAB.N 17:00 | PROVIDERS: ATTEND Physician Assistant Medical | DX: R30.0 Dysuria (principal) | CPT/HCPCS: 87086 ==

== ENCOUNTER 2023-01-18 10:26 | Outpatient (CLI) | payer MEDICARE ==
[2023-01-18 18:05] LABS: ALBUMIN 3.8 g/dL (3.2-5.5); ALBUMIN/GLOBULIN RATIO 1.3 (1.0-2.2); ALKALINE PHOSPHATASE 40 IU/L (42-121); ALT ALANINE AMINOTRANSFERASE 44 IU/L (10-60); AST ASPARTATE AMINOTRANSFERASE 34 IU/L (10-42); BILIRUBIN,TOTAL 0.5 mg/dL (0.2-1.0); BUN - BLOOD UREA NITROGEN 16 mg/dL (6-20); CALCIUM 9.2 mg/dL (8.5-10.3); CARBON DIOXIDE - CO2 29 mmol/L (21-32); CHLORIDE 105 mmol/L (101-111); CHOL/HDL RATIO 2.3 (<4.4); CHOLESTEROL 124 mg/dL; CREATININE 0.9 mg/dL (0.4-1.0); GFR - MDRD 61 (>89); GLUCOSE 112 mg/dL (70-100); HDL CHOLESTEROL 54 mg/dL; LDL CHOLESTEROL,CALCULATED 50 mg/dL; LDL/HDL RATIO 0.9 (<4.4); POTASSIUM 4.1 mmol/L (3.5-5.0); SODIUM 139 mmol/L (135-145); TOTAL PROTEIN 6.8 g/dL (6.7-8.2); TRIGLYCERIDES 98 mg/dL; VLDL CHOLESTEROL 20 mg/dL
== END 2023-01-18 10:27 | disposition home or self-care (01) ==
LOC: LAB.N 10:26
PROVIDERS: ATTEND Physician Assistant Medical
DX: I10 Essential (primary) hypertension (principal)
CPT/HCPCS: 36415; 80053; 80061; 83721

== ENCOUNTER 2023-01-20 08:00 | Outpatient (CLI) | payer MEDICARE ==
[2023-01-20 20:30] LABS: BACTERIAL VAGINOSIS DNA NEGATIVE (NEGATIVE); CANDIDA GLABRATA DNA NEGATIVE (NEGATIVE); CANDIDA GROUP DNA NEGATIVE (NEGATIVE); CANDIDA KRUSEI DNA NEGATIVE (NEGATIVE); TRICHOMONAS VAGINALIS DNA NEGATIVE (NEGATIVE)
== END 2023-01-20 23:59 | disposition home or self-care (01) ==
LOC: LAB.WCP 08:00
PROVIDERS: ATTEND Physician Assistant Medical
DX: R30.0 Dysuria (principal)
CPT/HCPCS: 81514; 87086; 87181

== ENCOUNTER 2023-04-20 12:28 | Outpatient (CLI) | payer MEDICARE | END 2023-04-20 12:29 | disposition home or self-care (01) | LOC: DI 12:28 | PROVIDERS: ATTEND Family Medicine | DX: I77.819 Aortic ectasia, unspecified site (principal); I51.7 Cardiomegaly | CPT/HCPCS: 93306 ==

== ENCOUNTER 2023-11-03 14:30 | Outpatient (CLI) | payer MEDICARE | END 2023-11-03 14:45 | disposition home or self-care (01) | LOC: LAB.N 14:30 | PROVIDERS: ATTEND Physician Assistant Medical | DX: N39.0 Urinary tract infection, site not specified (principal) | CPT/HCPCS: 87086 ==

== ENCOUNTER 2024-01-13 08:00 | Outpatient (CLI) | payer MEDICARE | END 2024-01-13 23:59 | disposition home or self-care (01) | LOC: LAB.N 08:00 | PROVIDERS: ATTEND Physician Assistant Medical | DX: N39.0 Urinary tract infection, site not specified (principal) | CPT/HCPCS: 87086 ==

== ENCOUNTER 2024-03-17 12:59 | Outpatient (CLI) | payer MEDICARE ==
--- NOTE | 2024-03-19 08:34 | CT Report ---
PROCEDURE: Maxillofacial WO INDICATIONS: MASTOIDITIS TECHNIQUE: Noncontrast 1.5 mm thick axial images acquired from the mandible through the frontal sinuses, with co lesa and sagittal reformatting. For radiation dose reduction, the following was used: automated ex posure control, adjustment of mA and/or kV according to patient size. COMPARISON: None. FINDINGS: Image quality: Excellent. Bones and teeth: Orbital langston are intact. Sinus langston show no fracture or deformity. Nasal bones and septum are intact. Visualized portions of the mandible demonstrate no fractures or subluxation. Zygomatic arches are intact. Pterygoid plates are intact. Visualized portions of the skull base an d auditory canals are intact. Sinuses: Mild scattered paranasal sinus mucosal disease. Mastoid air cells are aerated. Soft tissues: No edema, masses, or fluid collections. No enlarged lymph nodes. No soft tissue lace rations or debris. Bilateral lens replacements. Vascular: Visualized vascular structures appear normal in the absence of contrast. Bony vascular fo ramina and canals are intact. IMPRESSION: The mastoid air cells are clear. The inner ears structures are grossly unremarkable. Reviewed by: Paul Fragoso MD on 03/19/2024 8:33 AM PDT Approved by: Paul Fragoso MD on 03/19/2024 8:33 AM PDT Station ID: [id number]
== END 2024-03-17 13:00 | disposition home or self-care (01) ==
LOC: DI 12:59
PROVIDERS: ATTEND Physician Assistant Medical
DX: H70.892 Other mastoiditis and related conditions, left ear (principal); H74.92 Unspecified disorder of left middle ear and mastoid

== ENCOUNTER 2024-03-24 13:45 | Outpatient (CLI) | payer MEDICARE ==
--- NOTE | 2024-03-27 15:31 | XRAY Report ---
PROCEDURE: Knee 2V LT INDICATIONS: EFFUSION, LEFT KNEE TECHNIQUE: 2 views of the knee(s) were acquired. COMPARISON: X-ray knee 09/18/2022 FINDINGS: Bones: No fractures or dislocations. No suspicious bony lesions. Mild tricompartmental arthritic change most severe laterally. Particular osteophytes are present. No distinct erosions. Overall appea miguel is stable. Soft tissues: Minimal knee joint effusion. No suspicious soft tissue calcifications or masses. IMPRESSION: Stable tricompartmental arthritic change. Reviewed by: Vikki Del Rio MD on 03/27/2024 3:30 PM PDT Approved by: Vikki Del Rio MD on 03/27/2024 3:30 PM PDT Station ID: [id number]
== END 2024-03-24 14:00 | disposition home or self-care (01) ==
LOC: DI.N 13:45
PROVIDERS: ATTEND Physician Assistant Medical
DX: M25.462 Effusion, left knee (principal)

== ENCOUNTER 2024-04-05 11:13 | Outpatient (CLI) | payer MEDICARE ==
[2024-04-05 17:49] LABS: BASOPHILS # (AUTO) 0.1 10^3/uL (0.0-0.1); BASOPHILS % (AUTO) 0.6 %; EOSINOPHILS # (AUTO) 0.2 10^3/uL (0.0-0.7); EOSINOPHILS % (AUTO) 1.8 %; HCT - HEMATOCRIT 44.5 % (37.0-47.0); HGB - HEMOGLOBIN 14.2 g/dL (12.0-16.0); LYMPHOCYTES # (AUTO) 2.4 10^3/uL (1.5-3.5); LYMPHOCYTES % (AUTO) 27.7 %; MEAN CORPUSCULAR HEMOGLOBIN 29.3 pg (27.0-31.0); MEAN CORPUSCULAR HGB CONC 31.9 g/dL (32.0-36.0); MEAN CORPUSCULAR VOLUME 91.8 fL (81.0-99.0); MEAN PLATELET VOLUME 10.7 fL (7.9-10.8); MONOCYTES # (AUTO) 0.7 10^3/uL (0.0-1.0); MONOCYTES % (AUTO) 8.4 %; NEUTROPHILS # (AUTO) 5.3 10^3/uL (1.5-6.6); NEUTROPHILS % (AUTO) 61.4 %; PLT - PLATELET COUNT 213 10^3/uL (130-450); RED BLOOD COUNT 4.85 10^6/uL (4.20-5.40); RED CELL DISTRIBUTION WIDTH 13.7 % (12.0-15.0); WHITE BLOOD COUNT 8.6 x10^3/uL (4.8-10.8)
[2024-04-05 18:04] LABS: ALBUMIN 3.9 g/dL (3.2-5.5); ALBUMIN/GLOBULIN RATIO 1.6 (1.0-2.2); BILIRUBIN,TOTAL 0.6 mg/dL (0.2-1.0); CALCIUM 9.3 mg/dL (8.5-10.3); CREATININE 0.9 mg/dL (0.6-1.3); TOTAL PROTEIN 6.4 g/dL (6.4-8.9)
[2024-04-05 20:48] LABS: ESTIMATED AVERAGE GLUCOSE 108 mg/dL (70-100); HEMOGLOBIN A1c% 5.4 % (4.27-6.07)
== END 2024-04-05 11:14 | disposition home or self-care (01) ==
LOC: LAB.N 11:13
PROVIDERS: ATTEND Physician Assistant Medical
DX: E53.8 Deficiency of other specified B group vitamins (principal); R73.9 Hyperglycemia, unspecified; K21.9 Gastro-esophageal reflux disease without esophagitis
CPT/HCPCS: 36415; 80053; 82607; 83036; 85025

== ENCOUNTER 2024-04-22 13:05 | Outpatient (CLI) | payer MEDICARE ==
--- NOTE | 2024-04-24 12:10 | MRI Report ---
Knee LT WO CLINICAL INFORMATION: 78 years of age, Female, L KNEE PAIN. COMPARISON: None Technique: Multisequence, multiplanar MRI of the left knee was performed without intravenous contrast . FINDINGS: Menisci: In the medial meniscus, there is a horizontal longitudinal tear of the posterior horn, exten ding to the meniscus body and the anterior horn. There is moderate extrusion of the medial meniscus b tanya. There is a small cluster of parameniscal cyst within the inferior meniscus gutter, measuring 0.6 cm overall. In the lateral meniscus, there is a mildly complex tear of the lateral meniscus body, wi th a horizontal and a vertical component. No extrusion of the lateral meniscus body. Cruciate ligaments: The anterior and posterior cruciate ligaments are intact. MCL/LCL: The MCL is unremarkable. The biceps femoris tendon is unremarkable. The fibular collateral ligament is unremarkable. The iliotibial band is intact. The popliteus muscle and tendon also appear intact. Extensor mechanism: The quadricep tendon is unremarkable. The patella tendon is unremarkable. Patellofemoral joint: Alignment within the patellofemoral joint is normal. The patellofemoral ligame nts are intact. Cartilage and bone marrow signal within the patella and femoral trochlea are normal. Cartilage and bone: In the medial compartment, there is multifocal mild chondral irregularity of the weightbearing portion of the medial femoral condyle. There is additional large area of full-thickness chondral loss in the anterior nonweightbearing portion of the medial femoral condyle. In the lateral compartment, there is mild chondral irregularity of the weightbearing portion of the lateral femoral condyle. Miscellaneous: No significant joint effusion. Small popliteal cyst. No intra-articular bodies are id entified. Normal muscle signal intensity and morphology. No vascular anomaly. IMPRESSION: 1.Tear of the medial meniscus with small parameniscal cyst. 2.Tear of the lateral meniscus. 3.Moderate, medial compartment predominant chondrosis. 4.Small popliteal cyst. Reviewed by: Donna Amaya MD on 04/24/2024 12:08 PM PDT Approved by: Donna Amaya MD on 04/24/2024 12:08 PM PDT Station ID: [id number]
== END 2024-04-22 13:06 | disposition home or self-care (01) ==
LOC: DI 13:05
PROVIDERS: ATTEND Physician Assistant Medical
DX: S83.242A Other tear of medial meniscus, current injury, left knee, initial encounter (principal); S83.272A Complex tear of lateral meniscus, current injury, left knee, initial encounter; M23.004 Cystic meniscus, unspecified medial meniscus, left knee; M94.262 Chondromalacia, left knee; M71.22 Synovial cyst of popliteal space [Baker], left knee

== ENCOUNTER 2024-04-28 08:00 | Outpatient (CLI) | payer MEDICARE ==
--- NOTE | 2024-04-28 15:45 | XRAY Report ---
PROCEDURE: Knee 4+V LT INDICATIONS: KNEE PAIN LEFT TECHNIQUE: 3 views of the knee(s) were acquired. COMPARISON: 03/24/2024 and MRI of knee dated 04/22/2024. FINDINGS: Bones: No fractures or dislocations. [id number] tricompartmental osteoarthritis is seen more n otably in medial femoral tibial compartment. No significant patellar subluxation. No suspicious bony lesions. Soft tissues: No suspicious soft tissue calcifications or masses. IMPRESSION: No acute left knee fracture or dislocation. Mild to moderate tricompartmental osteoarthritis most not ably in medial femoral tibial compartment. No significant patellar subluxation. Reviewed by: Jamin Diaz MD on 04/28/2024 3:44 PM PDT Approved by: Jamin Diaz MD on 04/28/2024 3:44 PM PDT Station ID: [id number]
== END 2024-04-28 23:59 | disposition home or self-care (01) ==
LOC: DI.WOS 08:00
PROVIDERS: ATTEND Orthopaedic Surgery
DX: M17.12 Unilateral primary osteoarthritis, left knee (principal)